=== PATIENT | male | born 1960 | race Caucasian/White ===

== ENCOUNTER 2017-07-11 10:39 | Emergency (ER) | payer OTHER ==
[~2017-07-11] VITALS: Ht 165.1 cm; Wt 111.1 kg
[~2017-07-11 10:39] MED LIST: ATORVASTATIN CA20 MG PO; COLCRYS0.6 MG PO; FUROSEMIDE80 MG PO; GABAPENTIN300 MG PO; HUMALIN; HYDROCHLOROTH12.5 M1 PO; LEVOTHYROXINE50 MCG PO; NAPROXEN500 MG PO; POTASSIUM CHLO10 ME1 PO; TRAMADOL-ACETAMI1 EA PO; ZESTRIL20 MG PO
[2017-07-11 11:15] VITALS: BP 120/60
== END 2017-07-11 11:17 | disposition home or self-care (01) ==
LOC: FSED 10:39
DX: M79.632 Pain in left forearm (principal); M70.22 Olecranon bursitis, left elbow; M1A.9XX0 Chronic gout, unspecified, without tophus (tophi)
CPT/HCPCS: 99282

== ENCOUNTER 2017-08-07 08:13 | Inpatient (IN) | payer OTHER ==
[~2017-08-07] VITALS: Ht 163.8 cm; Wt 108.6 kg
--- OUTSIDE RECORDS SUMMARY | 2017-08-07 08:15 | XMS REPORT | Continuity of Care Document ---
Author Author [facility] Organization [facility] Address [address] [place] [address] Phone Unavailable Care Team Providers Care Tail Sawyer Name Role Phone NONSTAFF PCP Unavailable Insurance Providers Guarantor Cory Tran Address [address] [address] Email @NoWait Payer [facility] Policy Number [id number] Subscriber's Name Cory Tran Relationship 18 Self / Same As Patient Group Number [id number] Group Name [employer] Effective Date 13 Advance Directives Directive Response Recorded Date/Time Does the patient have an advance directive? No 01/24/12 12:48am If yes, is advance directive on file with [facility]? No 01/24/12 12:49am If not on file with [facility] will patient provide a copy? No 01/24/12 12:49am Problems No problem information available. Medications Current Home Medications Medication Dose Units Route Directions Days Qty Instructions Start Date Atorvastatin Calcium 20 Mg Tablet 20 Mg Oral Daily Colchicine (Colcrys) 0.6 Mg Tablet 0.6 Mg Oral Daily 30 Tab Furosemide 80 Mg Tablet 80 Mg Oral Twice A Day Gabapentin 300 Mg Capsule 300 Mg Oral Three Times A Day 60 Cap Gabapentin 300 Mg Capsule 300 Mg Oral Three Times A Day 60 Cap Humalin Hydrochlorothiazide 12.5 Mg Capsule 12.5 Mg Oral Daily Levothyroxine Sodium 50 Mcg Tablet 50 Mcg Oral Daily 30 Tab Lisinopril (Zestril*) 20 Mg Tablet 20 Mg Oral Daily Naproxen 500 Mg Tablet 500 Mg Oral Daily Potassium Chloride 10 Meq Tab.er.prt 10 Meq Oral Daily Tramadol/Acetaminophen (Tramadol-Acetaminophn 37.5-325) 1 Ea Tab 1 Tab Oral Every 8 Hours Social History Smoking Status Start Date Stop Date Never Smoker Hospital Discharge Instructions No hospital discharge instruction information available. Plan of Care Discharge Date 07/11/17 11:17am Disposition HOME, SELF-CARE Condition at Discharge Stable Instructions/Education Provided Bursitis - Elbow Forms Provided Work/School Excuse Prescriptions See Medication Section Additional Instructions/Education Apply ice to the area for 15 - 20 minutes every 2 hours, while awake, to help with pain. Indomethacin 50 mg - 1 tab three times/day, with food, for pain in elbow. You may NOT take Ibuprofen, Advil, Aleve, or any other similar medications while taking this medication. Make sure that you are drinking PLENTY OF WATER, while taking this medication, with a goal to drink 2L of water/day. Tramadol 50 mg - 1-2 tabs every 4-6 hours, for pain unrelieved by the Indomethacin. Folllow-up with your PCP, Dr. Carbone, this week if the pain is persistent, for further evaluation and treatment. Functional Status No functional status information available. Allergies, Adverse Reactions, Alerts No known allergies. Immunizations No immunization information available. Vital Signs Acute Vital Signs Vital Response Date/Time Temperature (Fahrenheit) 98.0 degrees F (97.6 - 99.5) 07/11/2017 11:15am Pulse Pulse Rate (adult) 96 bpm (60 - 90) 07/11/2017 11:15am Respiratory Rate 18 bpm (12 - 24) 07/11/2017 11:15am Blood Pressure 120/60 mm Hg 07/11/2017 11:15am Height 5 ft 5 in 07/11/2017 10:46am Weight 245 lb 07/11/2017 10:46am Body Mass Index 40.8 kg/m^2 07/11/2017 10:46am Results No relevant diagnostic test, laboratory data and/or discharge summary information available. Procedures No procedure information available. Encounters Encounter Location Arrival/Admit Date Discharge/Depart Date Attending Provider Departed Emergency Room [facility] 07/11/17 10:39am 07/11 11:17am KIANNA MERA MD
[2017-08-07] MEDS ORDERED: SODIUM CHLORIDE 0.9% 1000ML 1,000 ML IV STA (09:39)
[2017-08-07] MEDS ORDERED: INSULIN REGULAR, HUMAN 100 UNIT/1 ML 3ML VIAL SQ ONE (09:45)
[2017-08-07] MEDS ORDERED: SODIUM CHLORIDE FLUSH 10 ML SYR INJ PRN (10:15)
[2017-08-07] MEDS: SODIUM CHLORIDE 0.9% 1000ML 1,000 ML IV SCH ×3 (10:45→20:42)
[2017-08-07 12:05] VITALS: BP 123/58
[2017-08-07 12:17] VITALS: BP 123/58
[2017-08-07 12:59] VITALS: BP 118/57
[2017-08-07 13:00] VITALS: BP_SYST 138; BP_SYST 147; BP_DIAS 61; BP_DIAS 67
[2017-08-07 15:13] VITALS: BP 116/56
[2017-08-07] MEDS: GABAPENTIN 300 MG CAP PO SCH ×2 (15:41→20:42)
--- NOTE | 2017-08-07 15:47 | History and Physical ---
PRIMARY CARE DOCTOR: Dr. Keller with [facility]. HOSPITAL COVERING PHYSICIAN: Dr. Velasquez. HISTORY: Mr. Tran is a pleasant 56-year-old gentleman with worsened and excruciating neurologic symptoms. Patient is known to have back pain for years. Lumbar spine was involved previously. He has had CAT scan done in 2014 in our system. That CAT scan showed advanced degenerative facet arthropathy and synovitis at L4 to L5 mainly. There is moderate severe degenerative spinal canal and bilateral foraminal stenosis at L4-L5. There is bilateral sacral iliac joint degenerative changes. Patient was in usual state of health. He was always treated conservatively under management. However for the last day it is the worst pain ever. He has pain in the lower back radiating down the left leg. He has never had it this severe before. He denies weakness. He denies chronic stumbling or falls. Denies bladder or bowel problems. Additionally the patient is having dizziness. He never had dizziness like this before. It is vertigo and it was worse yesterday although slightly better today. The back pain is slightly worse on stooping forward and on lying on his back flat is also worse. PAST MEDICAL HISTORY: Hypertension, diabetes, renal disease chronic, arthritis, congestive heart failure, hyperlipidemia, hypothyroidism, gout, seasonal allergies. MEDICATIONS: Medication list reviewed per in the chart record. Mainly some blood pressure medicine. ALLERGIES: NO KNOWN DRUG ALLERGIES. SOCIAL HISTORY: No drinking, no drugs. He smoked from the age 13 to 26, one pack per day. 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 He worked for a [employer] company. REVIEW OF SYSTEMS: GENERAL: No weight changes. OPHTHALMOLOGIC: No double vision. ENT: No dry mouth. PULMONARY: No asthma. CARDIAC: No recent heart attack. GI: No constipation. : No blood in urine. MUSCULOSKELETAL: There is some arthritis. DERMATOLOGIC: No rashes. OBJECTIVE: VITAL SIGNS: Afebrile, vital signs noted per electronic chart. GENERAL: No acute distress, alert and calm. HEENT: Normocephalic, atraumatic. NECK: Supple. Throat midline. LUNGS: Bilateral air entry, clear. CARDIOVASCULAR: S1, S2. No murmurs, rubs, or gallops. ABDOMEN: Soft, obese. Nontender. EXTREMITIES: No clubbing, no cyanosis, no edema. INTEGUMENT: No rash, no purpura. LABS: White count 10, 42 hematocrit, 208 platelets. Potassium 4.7, 40 BUN, 1.8 creatinine. Urinalysis unremarkable. Albumin is 4.1. D-dimer is 622. BNP 36, troponin normal. Chest x-ray normal. IMPRESSION/PLAN: 1. Severe worst ever back pain. 2. New onset vertigo. 3. History of pre-existing moderate to severe spinal stenosis. 4. Advanced degenerative facet arthropathy and synovitis at L4 to L5 mainly. 5. Degenerative joint disease. 6. Hypertension, diabetes, heart disease, chronic kidney disease, arthritis, hyperlipidemia, hypothyroidism, gout. At this time we will continue current treatment. Check MRI of brain. Check MRI of lumbar spine. Once these are back, if there are no remarkable findings, we will consider ambulating him and think he would be good to be discharged. However if findings pertinent will address it as needed. Resume blood pressure medicines. Renal cautions with CKD. Thank you very much Dr. Keller for allowing me the chance to participate in the care of Mr. Tran. Do not hesitate to contact me if I can help in any way. This history and physical was in coverage for Jaylen Velasquez MD Job#: [id number] ROCÍO
[2017-08-07] MEDS ORDERED: NON-FORMULARY MEDICATION (Furosemide 80 MG) PO SCH (17:00)
[2017-08-07] MEDS ORDERED: DEXTROSE 50% SYRINGE 50 ML IV PRN (17:30)
[2017-08-07] MEDS: FUROSEMIDE 40 MG TAB PO SCH (17:42)
[2017-08-07] MEDS: INSULIN REGULAR, HUMAN 100 UNIT/1 ML 3ML VIAL SQ SCH ×2 (17:42→21:05)
[2017-08-07 20:00] VITALS: BP 128/58
--- NOTE | 2017-08-07 20:34 | Diagnostic Imaging Report ---
EXAMINATION: Head CT without contrast HISTORY: Vertigo, acute renal failure COMPARISON: None. TECHNIQUE: Multidetector axial images were obtained without contrast from the foramen magnum to the vertex . The images were reconstructed using brain and bone algorithms. Thin section brain images were reformatted into coronal and sagittal planes. Image quality: Motion/streaking artifact limits the evaluation of the skull base and posterior cranial fossa. FINDINGS: Parenchyma: 1. No abnormal densities. 2. No mass or hemorrhage. No CT evidence of acute territorial vascular insult. Extra-axial spaces:No abnormal density. No extra-axial fluid collections Brain volume: Normal for age. Ventricles: No hydrocephalus or displacement. Arteries: No density suggestive of thrombus. Dural sinuses: No abnormal density. Extra-axial spaces: No abnormal density. Foramen magnum: No mass, Chiari malformation, or basilar invagination. Sella: No obvious mass. Paranasal/mastoid sinuses: Imaged portions unremarkable. Skull/Scalp: No lytic or blastic lesions. No fractures. IMPRESSION: Normal head CT. Signed by: Dr. Negin Wesley M.D. on 08/07/2017 8:31 PM
--- NOTE | 2017-08-07 20:50 | Diagnostic Imaging Report ---
EXAMINATION: CT of the lumbar spine HISTORY: Back pain, vertigo, acute renal failure COMPARISON: None available TECHNIQUE: Multidetector helical axial images were obtained without contrast from L1 to S1. The images were reconstructed using bone and soft tissue algorithms and were viewed in axial, sagittal, and coronal planes. FINDINGS: Alignment:Normal alignment and lordosis. Vertebral bodies:Normal height and density. Minimal chronic deep depression of the endplates of T12, L1 and L2, likely shallow Schmorl nodes. Paraspinal muscles:Normal. Intervertebral disks: L1-L2: Normal. L2-L3: Minimal symmetric bulge without canal or foraminal stenoses. L3-L4: Mild symmetric disc and facet arthropathy. Minimal canal and foraminal narrowing. L4-L5: - Advanced facet arthroses mainly on the right with subchondral lucency/cyst, widening of the articular space and marginal osteophytes), small well-corticated bone fragment adjacent to the inferior margin of the right facet may represent a small chronic fracture. -Symmetric disc bulge, ligamenta flava thickening. -Severe spinal canal and bilateral foraminal stenoses. -Nonspecific effacement of the dorsal epidural fat, which may be related to ligamenta flava thickening versus nonspecific soft tissue lesion. Particularly given the mild erosive changes of the right lamina, which may represent underlying posttraumatic injury, inflammatory, infectious or neoplastic process versus extension of degenerative changes from the right facet. L5-S1: Mild facet arthrosis without canal or foraminal stenosis.. Sacroiliac joints: Prominent degenerative changes bilaterally with bridging osteophytes. IMPRESSION: 1. Minimal degenerative anterolisthesis at L4-5. 2. Severe degenerative spinal canal and bilateral foraminal stenosis at L4-L5. 3. Effacement of the dorsal epidural fat at L4-L5 an underlying osseous changes may be related to degenerative changes, other considerations would include posttraumatic, inflammatory or neoplastic process in the appropriate clinical setting; a nonemergent lumbar spine MRI without and with contrast is recommended for evaluation. Signed by: Dr. Negin Wesley M.D. on 08/07/2017 8:46 PM
[2017-08-08] VITALS: BP 111/54
[2017-08-08 02:24] VITALS: BP 111/54
[2017-08-08 04:00] VITALS: BP 100/54
[2017-08-08] MEDS: LEVOTHYROXINE SODIUM 50 MCG TAB PO SCH (05:17)
[2017-08-08] MEDS: SODIUM CHLORIDE 0.9% 1000ML 1,000 ML IV SCH ×5 (05:17→21:11)
[2017-08-08 06:52] LABS: ANION GAP 10.7 mmol/L (8-16); CALCIUM 8.9 mg/dL (8.4-10.2); CREATININE, SERUM 1.45 mg/dL (0.72-1.25); MAGNESIUM 1.5 MG/DL (1.3-2.1); POTASSIUM 3.7 mmol/L (3.5-5.1)
[2017-08-08 08:00] VITALS: BP 128/60
[2017-08-08] MEDS ORDERED: LEVOTHYROXINE SODIUM 50 MCG TAB PO SCH (09:00)
[2017-08-08] MEDS ORDERED: LISINOPRIL 20 MG TAB PO SCH (09:00)
[2017-08-08] MEDS: LISINOPRIL 20 MG TAB PO SCH (09:31)
[2017-08-08] MEDS: POTASSIUM CHLORIDE 10 MEQ TABCR PO SCH (09:31)
[2017-08-08] MEDS: FUROSEMIDE 40 MG TAB PO SCH ×2 (09:31→16:43)
[2017-08-08] MEDS: GABAPENTIN 300 MG CAP PO SCH ×3 (09:31→20:01)
--- NOTE | 2017-08-08 10:12 | Consultation ---
DATE OF CONSULTATION: August 08, 2017, at 8:30 in the morning. NEUROLOGICAL CONSULTATION This is a patient of Dr. Romo. REASON FOR CONSULTATION: Back pain. This is a 56-year-old male who stated in the last couple of days he has been complaining of severe back pain, all the lower back down to the left leg and down to the knee in the anterolateral aspect. The pain is severe. It is aggravated by movements. Best position is lying down on the left side. He denies any claudication. No pain after walking. He denies any weakness. He complains of some numbness and tingling in both feet. He denies any problem in the upper extremities. He denies any back injury. The patient has chronic lower back pain. He has been having lower back pain since 2013, when he underwent CAT scan of the lumbar at [facility]. They found significant degenerative changes in the lumbar spine with narrowing of spinal canal at L4-L5. The patient has been treated conservatively. The day that he woke up with the pain, he went to the bathroom. He felt dizzy, like lightheaded. He never had that problem before. At the present time, he is feeling better. PAST HISTORY: He has a history of hypertension, diabetes mellitus type 2, kidney insufficiency, arthritis, gout, hyperlipidemia, hypothyroidism. SOCIAL HISTORY: He does not drink. He does not smoke at the present time. He is working for a [employer]. ALLERGIES: NONE KNOWN. MEDICATIONS: List of medications has been reviewed in detail. FAMILY HISTORY: Noncontributory. REVIEW OF SYSTEMS: All 12 steps are negative except for what is described above. PHYSICAL EXAMINATION GENERAL: Weight is 230 pounds. He seems to be in no acute distress. VITALS: Blood pressure 100/54, pulse 95, temperature 98.2. LUNGS: Clear to auscultation. HEART: Regular sinus rhythm. No murmur. ABDOMEN: Moderately obese. No tenderness. LOWER EXTREMITIES: No edema. No cyanosis. No clubbing. NEUROLOGIC EXAMINATION MENTAL STATUS: He is alert and oriented times 3. Speech is clear. No dysarthria or dysphagia. CRANIAL NERVES: Pupils are both equal and reactive. The extraocular movements are full. Visual nelson on confrontation were grossly normal. No facial weakness. Tongue protrudes in the midline. MOTOR POWER: Upper extremities: No evidence of muscle wasting. Motor strength: Abduction of the arms 5/5. Flexion and extension of both arms 5/5. Dorsiflexion of the wrists 5/5. Hand er rn 5/5. Lower extremities: Straight-leg raise about 60 degrees bilaterally and positive with pain in the lower back. Flexion of the hips 5/5. Flexion and extension of both knees 5/5. Dorsiflexion of both ankles 5/5. Plantarflexion 5/5 bilaterally. Toe extension 5/5 bilaterally. DEEP TENDON REFLEXES: Triceps, biceps and radials are 1+. Knee jerks and ankle jerks are absent bilaterally. Plantar stimulation is down bilaterally. SENSORY EXAMINATION: Touch is normal to pinprick. There is mild hyperesthesia in a stocking distribution up to the ankles. Vibration sense is normal. HIP MOTION: Painful internal and external rotation. GAIT: Deferred. HEAD: Normocephalic. NECK: Supple. Carotid pulsations are present bilaterally. There are no bruits. LABORATORY WORKUP: Sodium 132, low. Potassium 3.7. BUN 32 and creatinine 1.45, elevated. Estimated GFR is low at 50. Blood sugar ranging from 252 to 366 to 258. Calcium is normal. Magnesium is normal. IMAGING: CAT scan of the brain shows no acute pathology. Currently small vessel disease. Lumbar spine shows degenerative changes of the lumbar spine from L1 to L4 and L5. There is advanced facet arthrosis at L4-L5. Severe spinal stenosis at L4-L5 with bilateral foraminal stenosis. L5-S1 has some mild facet arthrosis without foraminal stenosis. The sacroiliac joints (SI) have prominent degenerative changes bilaterally. IMPRESSION 1. Severe low back pain. 2. Severe spinal stenosis, L4-L5. 3. Multiple facet arthrosis bilaterally with foraminal stenosis bilaterally. 4. Hypertension. 5. Diabetes mellitus, type 2. 6. Kidney insufficiency. 7. One episode of dizziness. COMMENT: Even if the patient is feeling better now, since the spinal stenosis is severe, it should be evaluated by neurosurgeon. He was explained about what spinal stenosis means, and he said he accepts that. We will put a consult to neurosurgery. Job#: [id number]
[2017-08-08] MEDS: INSULIN REGULAR, HUMAN 100 UNIT/1 ML 3ML VIAL SQ SCH ×3 (12:59→21:08)
[2017-08-08 15:30] VITALS: BP 128/60
--- NOTE | 2017-08-08 15:30 | Progress Note ---
DATE: August 08, 2017 INTERNAL MEDICINE PROGRESS NOTE SUBJECTIVE: Mr. Tran was seen and examined at bedside. The patient continues to have some back pain, although it is a little bit less than yesterday. The patient did end up going for a CT of the brain, which was mostly unremarkable per report. The patient's vertigo resolved. However, the patient on lumbar spine CT demonstrated severe spinal canal and bilateral foraminal stenosis at L4-L5. There is effacement of dorsal epidural fat as well, which is nonspecific. REVIEW OF SYSTEMS: No constipation. No nausea. OBJECTIVE VITAL SIGNS: Afebrile, vital signs noted per electronic chart. GENERAL: No acute distress, alert and calm. HEENT: Normocephalic, atraumatic. NECK: Supple. Throat midline. LUNGS: Bilateral air entry, a few rare rhonchi but mostly clear. CARDIOVASCULAR: S1, S2. No murmurs, rubs, or gallops. ABDOMEN: Soft, nontender. EXTREMITIES: No clubbing, no cyanosis. There is no edema. INTEGUMENT: No rash, no purpura. LABS: 3.7 potassium, 32 BUN, 1.5 creatinine. IMPRESSION AND PLAN 1. Severe spinal canal stenosis, L4-L5 per CT. 2. Chronic kidney disease. 3. Hypertension. 4. Diabetes. 5. Reported heart failure in past. Appreciate neurology evaluation. Will get neurosurgery consult. Patient previously reported inability to do an MRI due to claustrophobia, and this may need to be re-evaluated if further imaging is needed. Repeat blood work in a couple of days to ensure creatinine is stable. Job#: [id number]
[2017-08-08 16:00] VITALS: BP 106/51
[2017-08-08] MEDS: INSULIN LISPRO 100 UNIT/1 ML 3ML VIAL SQ SCH (16:43)
[2017-08-08] MEDS: ALLOPURINOL 100 MG TAB PO SCH (20:01)
[2017-08-08] MEDS: COLCHICINE 0.6 MG TAB PO PRN (20:01)
[2017-08-09] VITALS (7 sets, daily range): BP systolic 107–138; BP diastolic 52–87
[2017-08-09] MEDS: LEVOTHYROXINE SODIUM 50 MCG TAB PO SCH (05:07)
[2017-08-09] MEDS: COLCHICINE 0.6 MG TAB PO PRN ×2 (05:08→19:49)
--- NOTE | 2017-08-09 06:46 | Diagnostic Imaging Report ---
EXAMINATION: CHEST SINGLE (PORTABLE) INDICATION: Acute renal failure versus CHF. COMPARISON: None FINDINGS: TUBES and LINES: None. LUNGS: Low lung volumes. Lungs are clear. There is no evidence of pneumonia or pulmonary edema. PLEURA: No pleural effusion or pneumothorax. HEART AND MEDIASTINUM: The cardiomediastinal silhouette is unremarkable. BONES AND SOFT TISSUES: No acute osseous lesion. Soft tissues are unremarkable. UPPER ABDOMEN: No free air under the diaphragm. IMPRESSION: No acute thoracic abnormality. Signed by: Dr. Maximiliano Aguirre M.D. on 08/09/2017 6:42 AM
[2017-08-09] MEDS: INSULIN REGULAR, HUMAN 100 UNIT/1 ML 3ML VIAL SQ SCH ×4 (07:30→21:18)
[2017-08-09 08:33] LABS: ANION GAP 12.8 mmol/L (8-16); CALCIUM 9.1 mg/dL (8.4-10.2); CREATININE, SERUM 1.37 mg/dL (0.72-1.25); MAGNESIUM 1.4 MG/DL (1.3-2.1); POTASSIUM 3.8 mmol/L (3.5-5.1)
[2017-08-09] MEDS: FUROSEMIDE 40 MG TAB PO SCH ×2 (08:38→16:38)
[2017-08-09] MEDS: LISINOPRIL 20 MG TAB PO SCH (08:38)
[2017-08-09] MEDS: GABAPENTIN 300 MG CAP PO SCH ×3 (08:38→21:18)
[2017-08-09] MEDS: SODIUM CHLORIDE 0.9% 1000ML 1,000 ML IV SCH ×2 (08:38→15:26)
[2017-08-09] MEDS: POTASSIUM CHLORIDE 10 MEQ TABCR PO SCH (08:38)
[2017-08-09] MEDS: ALLOPURINOL 100 MG TAB PO SCH (08:38)
[2017-08-09] MEDS: INSULIN LISPRO 100 UNIT/1 ML 3ML VIAL SQ SCH ×3 (08:39→16:38)
[2017-08-09] MEDS: TRAMADOL HCL 50 MG TAB PO PRN (18:18)
--- NOTE | 2017-08-09 19:50 | Progress Note ---
DATE: August 09, 2017 INTERNAL MEDICINE PROGRESS NOTE SUBJECTIVE: Mr. Tran was seen and examined at bedside. He continues to have a lot of pain to his back. He was transferred from observation to inpatient and he had a stooping gait when he is walking. Patient claims that pain is much better when he is at rest, however. Chest x-ray done, which is unremarkable. No headaches right now. REVIEW OF SYSTEMS: No bleeding. No headaches. No rash. OBJECTIVE VITAL SIGNS: Noted per electronic record. GENERAL: No acute distress, alert and calm. HEENT: Normocephalic, atraumatic. NECK: Supple. Throat midline. LUNGS: Bilateral air entry, a few rare rhonchi, a rare pause noted. CARDIOVASCULAR: S1, S2. No murmurs, rubs or gallops. ABDOMEN: Soft, nontender. EXTREMITIES: No clubbing, no cyanosis. There is no edema. INTEGUMENT: No rash, no purpura. LABS: BUN 28, creatinine 1.4, potassium 3.8. IMPRESSION AND PLAN 1. Clinical severe spinal stenosis, lumbar based on computed tomography. 2. Headaches, resolved. 3. Chronic kidney disease. 4. Diabetes, uncontrolled. At this time, we will up-titrate the insulin again, as he is eating well and his sugars remain high. Will add Tramadol for possible gout or other knee pains that he has. Follow up with surgeon. MRI versus myelogram as per the patient's ability to perform to rule out myelopathy in spinal cord. Will follow up closely and neurosurgery input in expected. Job#: [id number]
[2017-08-09] MEDS: ACETAMINOPHEN/CODEINE 300MG - 30MG TAB PO PRN (23:21)
[2017-08-10] MEDS: SODIUM CHLORIDE 0.9% 1000ML 1,000 ML IV SCH ×4 (00:59→18:06)
[2017-08-10 01:25] VITALS: BP 111/56
[2017-08-10 05:35] VITALS: BP 102/54
[2017-08-10] MEDS: LEVOTHYROXINE SODIUM 50 MCG TAB PO SCH (06:28)
[2017-08-10 07:02] LABS: BASOPHILS % 0.3 % (0.0-1.0); EOSINOPHILS # (AUTO) 0.2 (0.0-0.4); EOSINOPHILS % 1.9 % (0.0-6.0); HEMATOCRIT 36.5 % (38.2-49.6); HEMOGLOBIN 12.5 g/dL (14.0-18.0); LYMPHOCYTES % 22.3 % (18.0-39.1); MEAN CORPUSCULAR HEMOGLOBIN 29.2 pg (28-32); MEAN CORPUSCULAR HGB CONC 34.2 g/dL (31-35); MEAN CORPUSCULAR VOLUME 85.3 fL (81-99); MONOCYTES % 11.5 % (4.4-11.3); NEUTROPHILS # (AUTO) 5.6 (2.1-6.9); NEUTROPHILS % 63.4 % (38.7-80.0); PLATELET COUNT 198 x10e3/uL (140-360); RED BLOOD COUNT 4.28 x10e6/uL (4.3-5.7); RED CELL DISTRIBUTION WIDTH 12.3 % (11.7-14.4)
[2017-08-10 07:22] LABS: ALBUMIN/GLOBULIN RATIO 0.9 (0.8-2.0); ANION GAP 11.9 mmol/L (8-16); CALCIUM 8.9 mg/dL (8.4-10.2); CREATININE, SERUM 1.29 mg/dL (0.72-1.25); POTASSIUM 3.9 mmol/L (3.5-5.1)
[2017-08-10] MEDS: INSULIN REGULAR, HUMAN 100 UNIT/1 ML 3ML VIAL SQ SCH ×4 (07:30→21:00)
[2017-08-10 07:31] VITALS: BP 144/65
[2017-08-10] MEDS: LISINOPRIL 20 MG TAB PO SCH (08:57)
[2017-08-10] MEDS: FUROSEMIDE 40 MG TAB PO SCH ×3 (08:57→18:37)
[2017-08-10] MEDS: POTASSIUM CHLORIDE 10 MEQ TABCR PO SCH (08:57)
[2017-08-10] MEDS: INSULIN LISPRO 100 UNIT/1 ML 3ML VIAL SQ SCH ×3 (08:57→17:54)
[2017-08-10] MEDS: GABAPENTIN 300 MG CAP PO SCH ×3 (08:57→22:27)
[2017-08-10] MEDS: ALLOPURINOL 100 MG TAB PO SCH (08:57)
[2017-08-10 13:52] VITALS: BP 133/62
[2017-08-10] MEDS ORDERED: LORAZEPAM INJ 2 MG/ML VIAL IV PRN (16:45)
[2017-08-10 17:45] VITALS: BP 136/65
[2017-08-10 20:00] VITALS: BP 114/50
[2017-08-10] MEDS: TRAMADOL HCL 50 MG TAB PO PRN (22:31)
--- NOTE | 2017-08-10 23:53 | Progress Note ---
DATE: August 10, 2017 INTERNAL MEDICINE PROGRESS NOTE SUBJECTIVE: Mr. Tran was seen and examined at bedside. Still with a lot of pain to his lower back. Still some pain to his left knee. However, these are better today. He says he is able to walk around a little bit now. Neurosurgery saw the patient and noted need for further workup. REVIEW OF SYSTEMS: No headaches, no constipation. OBJECTIVE: VITAL SIGNS: Afebrile, vital signs noted per electronic record. GENERAL: In no acute distress, alert and calm. HEENT: Normocephalic, atraumatic. NECK: Supple. Throat midline. LUNGS: Bilateral air entry, mostly clear. CARDIOVASCULAR: S1, S2. No murmurs, rubs, or gallops. ABDOMEN: Soft, nontender. EXTREMITIES: No clubbing, no cyanosis, there is no edema. INTEGUMENT: No rash, no purpura. LABS: Potassium 3.9, 28 BUN, 1.3 creatinine. 8.8 white count, 37 hematocrit. IMPRESSION AND PLAN: 1. Severe pain, slightly better to lower back and left leg. 2. Severe central canal stenosis. 3. Hypertension. 4. Diabetes. 5. Reported congestive heart failure. 6. Chronic kidney disease. Continue followup on current medications. Reassess renal function and avoid nephrotoxic agents. Magnetic resonance imaging of the spine today. Additional benzodiazepine will be given. Follow up blood sugars. Blood sugars often 200s range here, so we will slightly modify insulin coverage in next few days if not better. He is on his home dose of 16 units of insulin t.i.d. with meals. Job#: [id number]
[2017-08-11] VITALS (7 sets, daily range): BP systolic 104–151; BP diastolic 50–88
[2017-08-11] MEDS: ACETAMINOPHEN/CODEINE 300MG - 30MG TAB PO PRN (02:30)
[2017-08-11] MEDS: LEVOTHYROXINE SODIUM 50 MCG TAB PO SCH (06:50)
[2017-08-11] MEDS: GABAPENTIN 300 MG CAP PO SCH ×3 (09:30→21:39)
[2017-08-11] MEDS: ALLOPURINOL 100 MG TAB PO SCH (09:30)
[2017-08-11] MEDS: POTASSIUM CHLORIDE 10 MEQ TABCR PO SCH (09:30)
[2017-08-11] MEDS: FUROSEMIDE 40 MG TAB PO SCH ×2 (09:30→18:01)
[2017-08-11] MEDS: LISINOPRIL 10 MG TAB PO SCH (09:30)
[2017-08-11] MEDS: INSULIN LISPRO 100 UNIT/1 ML 3ML VIAL SQ SCH ×3 (09:30→18:01)
[2017-08-11] MEDS: INSULIN REGULAR, HUMAN 100 UNIT/1 ML 3ML VIAL SQ SCH ×4 (09:34→21:00)
--- NOTE | 2017-08-11 10:39 | Consultation ---
DATE OF CONSULTATION: August 11, 2017 REASON FOR CONSULTATION: Low back pain. HISTORY OF PRESENT ILLNESS: The patient is a 56-year-old man who has had chronic intermittent low back pain for several years. He also has gout in his left knee which has flared up recently. He has been taking pain medications on and off for his back pain but has not had any specific treatment. He was admitted 4 days ago with severe flare up of low back pain radiating down both legs such that he had a great deal of difficulty walking except when he is stooped over. He has been treated with pain medications and bed rest, and his back pain has improved since then. At this time, he remains with left knee gout pain, which causes him to limp when he walks. PHYSICAL EXAMINATION: The left knee joint is mildly tender to palpation. He can stand and walk independently, lifting on the left side because of the knee pain. Motor strength is preserved in the leg. Sensory testing reveals no dermatomal deficits. The deep tendon reflexes are 1+ and symmetric throughout. Plantar response was flexor. MRI and CT of the lumbar spine were reviewed. There is moderate spinal stenosis at L4-5 associated with mild, grade-1, degenerative spondylolisthesis. IMPRESSION: Moderate L4-L5 spinal stenosis with mild, grade-1, degenerative spondylolisthesis. At this time, he does not require surgical treatment. He can be discharged from my standpoint and follow up with the pain specialist for lumbar epidural steroid injections. He can also follow up with me at a later date if his pain recurs, at which point the option of surgery can be reconsidered. Job#: [id number]
[2017-08-11] MEDS ORDERED: METHYLPREDNISOLONE SOD SUCC 40 MG/ML VIAL IV ONE (20:30)
--- NOTE | 2017-08-11 20:47 | Progress Note ---
DATE: August 11, 2017 INTERNAL MEDICINE PROGRESS NOTE SUBJECTIVE: Mr. Tran was seen and examined at the bedside. The patient continues to have a lot of pain in his back, but less than before. The patient with examination by neurosurgeon demonstrating no acute surgical need. The patient recommended for pain management. REVIEW OF SYSTEMS: No bleeding, no diarrhea. OBJECTIVE VITAL SIGNS: Afebrile. Vital signs noted per the chart record. GENERAL: In no apparent distress, alert and calm. HEENT: Normocephalic, atraumatic. NECK: Supple. Throat midline. LUNGS: Bilateral air entry, clear. CARDIOVASCULAR: S1 and S2 and no murmurs, rubs or gallops. ABDOMEN: Soft and nontender. EXTREMITIES: No cyanosis or clubbing. There is no edema. INTEGUMENT: No rash, no purpura. IMPRESSION 1. Lower back pain, moderate, L4 to L5 spinal stenosis. 2. Mild degenerative spondylolisthesis. 3. History of gout, possible left knee gouty pain. 4. Hypertension. 5. Diabetes mellitus. 6. Reported congestive heart failure. 7. Chronic kidney disease. PLAN: Check x-rays and give a dose of steroids for possibility of gout. computer help desk specialist. Will see by physical therapy if the patient can go home tomorrow. Will follow him closely. Job#: [id number]
--- NOTE | 2017-08-11 21:35 | Diagnostic Imaging Report ---
EXAM: KNEE LEFT THREE VIEWS, AP, lateral and oblique INDICATION: Left knee pain, no injury COMPARISON: Left knee x-ray January 24, 2012 FINDINGS: BONES: No acute fractures. Patellar and anterior tibial tuberosity enthesophytes. JOINTS: No malalignment. SOFT TISSUES: Suspect a small joint effusion. IMPRESSION: Mild degenerative changes of the left knee and possible small joint effusion. No evidence of fracture. Signed by: Dr. Cassie Hanna M.D. on 08/11/2017 9:31 PM
[2017-08-12] VITALS: BP 126/58
[2017-08-12 04:46] VITALS: BP 131/59
[2017-08-12] MEDS: LEVOTHYROXINE SODIUM 50 MCG TAB PO SCH (06:19)
[2017-08-12 07:59] VITALS: BP 124/53
[2017-08-12] MEDS: GABAPENTIN 300 MG CAP PO SCH (08:34)
[2017-08-12] MEDS: ALLOPURINOL 100 MG TAB PO SCH (08:34)
[2017-08-12] MEDS: POTASSIUM CHLORIDE 10 MEQ TABCR PO SCH (08:34)
[2017-08-12] MEDS: FUROSEMIDE 40 MG TAB PO SCH (08:34)
[2017-08-12] MEDS: LISINOPRIL 10 MG TAB PO SCH (08:35)
[2017-08-12] MEDS: INSULIN REGULAR, HUMAN 100 UNIT/1 ML 3ML VIAL SQ SCH (08:35)
[2017-08-12] MEDS: INSULIN LISPRO 100 UNIT/1 ML 3ML VIAL SQ SCH (08:35)
[2017-08-12 09:46] VITALS: BP 124/53
--- NOTE | 2017-08-12 14:12 | Discharge Summary ---
PRIMARY CARE DOCTOR: Dr. Dar Carbone FINAL DIAGNOSIS: Severe spinal stenosis of L4 and L5. SECONDARY DIAGNOSES 1. Stage 3 chronic kidney disease due to diabetes. 2. Hypertension. 3. Left knee acute gouty flare. 4. Congestive heart failure per report. CONSULTANTS 1. Dr. Montoya, neurosurgery. 2. Dr. Paul, neurology. PROCEDURES/STUDIES PERFORMED 1. Lumbar spine MRI. 2. Lumbar spine computerized tomography. 3. Head computerized tomography. 4. Chest x-ray. 5. Knee x-ray. HISTORY: Per [facility] and [facility]. HOSPITAL COURSE: The patient had persistent severe back pain due to severe spinal stenosis. Subsequently, still had left knee gouty flare. The patient was evaluated by neurosurgery. No acute surgical intervention is indicated. The patient was given a dose of Solu-Medrol 40 mg. Both his left knee and his back felt better. Currently, he is able to ambulate without needing any assisted device. At baseline, the patient is ambulatory. He works. He is independent. His sugar did go up a little bit with the steroids. Will go ahead and let him go home today on a Medrol Dosepak. His creatinine is relatively stable while in the hospital ranging from 1.4 to 1.2. The patient was seen and examined today. It took 33 minutes total to discharge this patient today. CONDITION ON DISCHARGE: Stable. DISCHARGE MEDICATIONS: Please see medication reconciliation form. ADOLPH WARE M.D. Job#: [id number] RI cc:DAR CARBONE MD
--- NOTE | 2017-08-13 09:49 | Diagnostic Imaging Report ---
MRI SPINE LUMBAR WO History: 56-year-old with acute renal failure, chronic low back pain, and new onset increase in low back pain radiating to the left leg without weakness, concomitant dizziness, Comparison studies:CT lumbar spine 08/07/2017 Technique: Sagittal and axial T2 , sagittal T1 and IR, axial spin density oblique. Intravenous contrast: None Findings: Number of lumbar vertebral bodies: 5. Alignment: Normal lordosis. No scoliosis. Soft tissues: No T2 hyperintense inflammatory changes. Paraspinal muscles: Paraspinous inflammatory changes within the subcutaneous soft tissues posterior to L4 and L5 Lower thoracic cord: Normal in signal and morphology. The tip of the conus is at L1 . Cauda equina: No masses. No arachnoiditis. Vertebrae: No compression fractures, infection or neoplasm. Degenerative changes: Congenitally short pedicles L1-L2: Disc height maintained. No significant disc bulge. Thickening of the ligamentum flavum. Mild narrowing of the spinal canal. Mild narrowing of the right foramen L2-L3: T2 signal in disc height maintained. Mild thickening of the ligamentum flavum. Mild narrowing of the spinal canal. Bilateral foraminal widely patent. L3-L4: T2 signal and disc height maintained. Mild symmetric bulging disc. Spinal canal is widely patent. Mild bilateral foraminal narrowing. L4-L5: T2 signal and disc height maintained. Mild symmetric bulging disc. Thickening of the ligamentum flavum. Significant bilateral facet hypertrophy. Resulting moderate to severe canal narrowing with resulting crowding of the nerve roots and loss of CSF signal. Fluid within bilateral facet joints.Inflammatory changes adjacent to the facet joints bilaterally. Moderate to severe bilateral foraminal narrowing right greater than left. L5-S1: No abnormalities IMPRESSION: 1. Bilateral L4-L5 facet synovitis, with small cyst formation associated with left. 2. Foraminal narrowing greatest at L4-L5, right greater than left Signed by: Dr. Jesus Mcclain M.D. on 08/13/2017 9:45 AM
== END 2017-08-12 11:05 | disposition home or self-care (01) | DRG 552 ==
LOC: FSED 08:13 → IMCU 11:08 → OBSVTOIN 08-09 11:05 → MED/SURG 08-09 15:29
PROVIDERS: ADMIT Internal Medicine; ATTEND Internal Medicine
DX: M48.061 Spinal stenosis, lumbar region without neurogenic claudication (principal); N17.9 Acute kidney failure, unspecified; I13.0 Hypertensive heart and chronic kidney disease with heart failure and stage 1 through stage 4 chronic kidney disease, or unspecified chronic kidney disease; Z68.41 Body mass index [BMI] 40.0-44.9, adult; E11.22 Type 2 diabetes mellitus with diabetic chronic kidney disease; N18.3 Chronic kidney disease, stage 3 (moderate); I50.9 Heart failure, unspecified; R42 Dizziness and giddiness; E66.9 Obesity, unspecified; M10.062 Idiopathic gout, left knee; M43.16 Spondylolisthesis, lumbar region; E03.9 Hypothyroidism, unspecified; E11.65 Type 2 diabetes mellitus with hyperglycemia; Z79.4 Long term (current) use of insulin; E78.5 Hyperlipidemia, unspecified; R51 Headache
CPT/HCPCS: 36415; 70450; 71045; 72131; 72148; 80048; 80053; 80307; 81003; 82948; 83735; 84484; 85025; 85379; 93005; 97139; 99284; G0378; J2060; J2920; J7030

== ENCOUNTER 2018-07-22 17:33 | Emergency (ER) | payer OTHER ==
[~2018-07-22] VITALS: Ht 163.8 cm; Wt 109.3 kg
--- OUTSIDE RECORDS SUMMARY | 2018-07-22 17:36 | XMS REPORT ---
Author Author [facility] Address Unknown Phone Unavailable Care Team Providers Care Talend Developer Name Role Phone Albert WARE Unavailable Unavailable Problems This patient has no known problems. Allergies, Adverse Reactions, Alerts This patient has no known allergies or adverse reactions. Medications This patient has no known medications. Results Test Description Test Time Test Comments Text Results Atomic Results Result Comments KNEE LEFT THREE VIEWS [place] [address] Patient Name: CARLOS MARIA MR #: [id number] : 1960 Age/Sex: 56/M Req #: [id number] Adm Physician: ADOLPH WARE MD Ordered by: PHUC POLLARD MD Report #: [id number] Location: MED/SURG Room/Bed: [facility] Procedure: [id number] DX/KNEE LEFT THREE VIEWS Exam Date: 08/11/17 Exam Time: 2054 REPORT STATUS: Signed EXAM: KNEE LEFT THREE VIEWS, AP, lateral and oblique INDICATION: Left knee pain, no injury COMPARISON: Left knee x-ray January 24, 2012 FINDINGS: BONES: No acute fractures. Patellar and anterior tibial tuberosity enthesophytes. JOINTS: No malalignment. SOFT TISSUES: Suspect a small joint effusion. IMPRESSION: Mild degenerative changes of the left knee and possible small joint effusion. No evidence of fracture. Signed by: Dr. Juan Hanna M.D. on 08/11/2017 9:31 PM Dictated By: JUAN HANNA MD 30 Transcribed By: DEVAN on 08/11/172130 COPY TO: PHUC POLLARD MD MRI SPINE LUMBAR WO [place] [address] Patient Name: CARLOS MARIA MR #: [id number] : 1960 Age/Sex: 56/M Req #: [id number] Adm Physician: ADOLPH WARE MD Ordered by: LAZARO VALDIVIA MD Report #: [id number] Location: MED/SURG Room/Bed: [facility] Procedure: [id number] MRI/MRI SPINE LUMBAR WO Exam Date: Exam Time: REPORT STATUS: Signed MRI SPINE LUMBAR WO History: 56-year-old with acute renal failure, chronic low back pain, and new onset increase in low back pain radiating to the left leg without weakness, concomitant dizziness, Comparison studies:CT lumbar spine 08/07/2017 Technique: Sagittal and axial T2 , sagittal T1 and IR, axial spin density oblique. Intravenous contrast: None Findings: Number of lumbar vertebral bodies: 5. Alignment: Normal lordosis. No scoliosis. Soft tissues: No T2 hyperintense inflammatory changes. Paraspinal muscles: Paraspinous inflammatory changes within the subcutaneous soft tissues posterior to L4 and L5 Lower thoracic cord: Normal in signal and morphology. The tip of the conus is at L1 . Cauda equina: No masses. No arachnoiditis. Vertebrae: No compression fractures, infection or neoplasm. Degenerative changes: Congenitally short pedicles L1-L2: Disc height maintained. No significant disc bulge. Thickening of the ligamentum flavum. Mild narrowing of the spinal canal. Mild narrowing of the right foramen L2-L3: T2 signal in disc height maintained. Mild thickening of the ligamentum flavum. Mild narrowing of the spinal canal. Bilateral foraminal widely patent. L3-L4: T2 signal and disc height maintained. Mild symmetric bulging disc. Spinal canal is widely patent. Mild bilateral foraminal narrowing. L4-L5: T2 signal and disc height maintained. Mild symmetric bulging disc. Thickening of the ligamentum flavum. Significant bilateral facet hypertrophy. Resulting moderate to severe canal narrowing with resulting crowding of the nerve roots and loss of CSF signal. Fluid within bilateral facet joints.Inflammatory changes adjacent to the facet joints bilaterally. Moderate to severe bilateral foraminal narrowing right greater than left. L5-S1: No abnormalities IMPRESSION: 1. Bilateral L4-L5 facet synovitis, with small cyst formation associated with left. 2. Foraminal narrowing greatest at L4-L5, right greater than left Signed by: Dr. Jesus Crespo M.D. on 08/13/2017 9:45 AM Dictated By: JESUS CRESPO MD Transcribed By: DEVAN on 08/13/1745 COPY TO: LAZARO VALDIVIA MD CHEST SINGLE (PORTABLE) [place] [address] Patient Name: CARLOS MARIA MR #: [id number] : 1960 Age/Sex: 56/M Req #: [id number] Adm Physician: ADOLPH WARE MD Ordered by: PHUC POLLARD MD Report #: [id number] Location: [facility] Room/Bed: [place] [address] Procedure: [id number] DX/CHEST SINGLE (PORTABLE) Exam Date: 08/09/17 Exam Time: 06 REPORT STATUS: Signed EXAMINATION: CHEST SINGLE (PORTABLE) INDICATION: Acute renal failure versus CHF. COMPARISON: None FINDINGS: TUBES and LINES: None. LUNGS: Low lung volumes. Lungs are clear. There is no evidence of pneumonia or pulmonary edema. PLEURA: No pleural effusion or pneumothorax. HEART AND MEDIASTINUM: The cardiomediastinal silhouette is unremarkable. BONES AND SOFT TISSUES: No acute osseous lesion. Soft tissues are unremarkable. UPPER ABDOMEN: No free air under the diaphragm. IMPRESSION: No acute thoracic abnormality. Signed by: Dr. Maximiliano Aguirre M.D. on 08/09/2017 6:42 AM Dictated By: MAXIMILIANO BIRCH MD 1 Transcribed By: DEVAN on 08/09/17641 COPY TO: PHUC POLLARD MD CT BRAIN WO [place] [address] Patient Name: CARLOS MARIA MR #: [id number] : 1960 Age/Sex: 56/M Req #: [id number] [facility] Physician: ADOLPH WARE MD Ordered by: PHUC POLLARD MD Report #: [id number] Location: [facility] Room/Bed: [place] [address] Procedure: [id number] CT/CT BRAIN WO Exam Date: 08/07/17 Exam Time: 2017 REPORT STATUS: Signed EXAMINATION: Head CT without contrast HISTORY: Vertigo, acute renal failure COMPARISON: None. TECHNIQUE: Multidetector axial images were obtained without contrast from the foramen magnum to the vertex . The images were reconstructed using brain and bone algorithms. Thin section brain images were reformatted into coronal and sagittal planes. Image quality: Motion/streaking artifact limits the evaluation of the skull base and posterior cranial fossa. FINDINGS: Parenchyma: 1. No abnormal densities. 2. No mass or hemorrhage. No CT evidence of acute territorial vascular insult. Extra-axial spaces:No abnormal density. No extra-axial fluid collections Brain volume: Normal for age. Ventricles: No hydrocephalus or displacement. Arteries: No density suggestive of thrombus. Dural sinuses: No abnormal density. Extra-axial spaces: No abnormal density. Foramen magnum: No mass, Chiari malformation, or basilar invagination. Sella: No obvious mass. Paranasal/mastoid sinuses: Imaged portions unremarkable. Skull/Scalp: No lytic or blastic lesions. No fractures. IMPRESSION: Normal head CT. Signed by: Dr. Negin Wesley M.D. on 08/07/2017 8:31 PM Dictated By: NEGIN WESLEY MD 30 Transcribed By: DEVAN on 08/07/172030 COPY TO: PHUC POLLARD MD CT LUMBAR SPINE WO [place] [address] Patient Name: CARLOS MARIA MR #: [id number] : 1960 Age/Sex: 56/M Req #: [id number] Adm Physician: ADOLPH WARE MD Ordered by: PHUC POLLARD MD Report #: [id number] Location: [facility] Room/Bed: [place] [address] Procedure: [id number] CT/CT LUMBAR SPINE WO Exam Date: 08/07/17 Exam Time: 2017 REPORT STATUS: Signed EXAMINATION: CT of the lumbar spine HISTORY: Back pain, vertigo, acute renal failure COMPARISON: None available TECHNIQUE: Multidetector helical axial images were obtained without contrast from L1 to S1. The images were reconstructed using bone and soft tissue algorithms and were viewed in axial, sagittal, and coronal planes. FINDINGS: Alignment:Normal alignment and lordosis. Vertebral bodies:Normal height and density. Minimal chronic deep depression of the endplates of T12, L1 and L2, likely shallow Schmorl nodes. Paraspinal muscles:Normal. Intervertebral disks: L1-L2: Normal. L2-L3: Minimal symmetric bulge without canal or foraminal stenoses. L3-L4: Mild symmetric disc and facet arthropathy. Minimal canal and foraminal narrowing. L4-L5: - Advanced facet arthroses mainly on the right with subchondral lucency/cyst, widening of the articular space and marginal osteophytes), small well-corticated bone fragment adjacent to the inferior margin of the right facet may represent a small chronic fracture. - Symmetric disc bulge, ligamenta flava thickening. -Severe spinal canal and bilateral foraminal stenoses. -Nonspecific effacement of the dorsal epidural fat, which may be related to ligamenta flava thickening versus nonspecific soft tissue lesion. Particularly given the mild erosive changes of the right lamina, which may represent underlying posttraumatic injury, inflammatory, infectious or neoplastic process versus extension of degenerative changes from the right facet. L5-S1: Mild facet arthrosis without canal or foraminal stenosis.. Sacroiliac joints: Prominent degenerative changes bilaterally with bridging osteophytes. IMPRESSION: 1. Minimal degenerative anterolisthesis at L4-5. 2. Severe degenerative spinal canal and bilateral foraminal stenosis at L4-L5. 3. Effacement of the dorsal epidural fat at L4-L5 an underlying osseous changes may be related to degenerative changes, other considerations would include posttraumatic, inflammatory or neoplastic process in the appropriate clinical setting; a nonemergent lumbar spine MRI without and with contrast is recommended for evaluation. Signed by: Dr. Negin Wesley M.D. on 08/07/2017 8:46 PM Dictated By: NEGIN WESLEY MD 45 Transcribed By: DEVAN on 08/07/172045 COPY TO: PHUC POLLARD MD
[2018-07-22] MEDS ORDERED: KETOROLAC TROMETHAMINE 60 MG/2 ML VIAL IM ONE (18:15)
== END 2018-07-22 18:50 | disposition home or self-care (01) ==
LOC: FSED 17:33
DX: M25.551 Pain in right hip (principal); M25.561 Pain in right knee; M25.571 Pain in right ankle and joints of right foot; M10.09 Idiopathic gout, multiple sites; I10 Essential (primary) hypertension; E11.9 Type 2 diabetes mellitus without complications; E78.5 Hyperlipidemia, unspecified; I50.9 Heart failure, unspecified
CPT/HCPCS: 99282; J1885

== ENCOUNTER → 2019-09-12 | Day surgery (SDC) | payer OTHER ==
[2019-09-08 15:18] LABS: ANION GAP 14.8 mmol/L (8-16); CALCIUM 9.3 mg/dL (8.4-10.2); CREATININE, SERUM 2.34 mg/dL (0.72-1.25); POTASSIUM 4.8 mmol/L (3.5-5.1)
[~2019-09-12] MED LIST changes: +ACETAMINOPHEN 1000 MG/100 ML IV ONE; +ALLOPURINOL300 MG PO; +CEFAZOLIN SOD 1 GM/NS 50ML 50 ML IV ONE; +DEXAMETHASONE SOD PHOS INJ 4 MG/ML VIAL ONE; +FENTANYL CITRATE/PF 100MCG/2 ML INJ ONE; +HUMULIN R100 UNIT/2 SQ; +LEVEMIR FL100 UNIT/1 SC; +LIDOCAINE HCL 2% LOCAL INJ 5 ML SDV VIAL INJ ONE; +LISINOPRIL-HCT1 EACH PO; +MIDAZOLAM HCL 2 MG/2 ML VIAL ONE; +MORPHINE SULFATE 2 MG/ML SYR 1ML ONE; +ONDANSETRON HCL INJ 2MG/ML 2ML 2 MG/ML VIAL ONE; +PHENYLEPHRINE HCL 1% 10 MG/ML VIAL ONE; +PROPOFOL IV EMULSION 10 MG/ML 20 ML VIAL ONE; +SEVOFLURANE INHAL SOLN 250 ML PEN BTL ONE
--- NOTE | 2019-09-12 10:59 | Operative Report ---
DATE OF PROCEDURE: 09/12/2019 SURGEON: Norm Perez MD ADULT PROTECTIVE CASEWORKER: Armaan Cota, certified PA. PREOPERATIVE DIAGNOSIS: Left knee medial meniscal tear. 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 PROCEDURES: Left knee arthroscopy, partial medial meniscectomy. INDICATIONS: The patient is a 58-year-old gentleman, who has clinic signs and symptoms consistent with a tear of the medial meniscus in his left knee. He has failed conservative management and would like to proceed with arthroscopic intervention. The risks and benefits of the procedure have been discussed. The specific attention has been applied to the fact that he has some underlying early arthritic changes. He understands that arthroscopy will not resolve all of the symptoms. He states he understands and wishes to proceed. PROCEDURE IN DETAIL: The patient was brought to the operating room and placed under general anesthetic. His left lower extremity was prepped and draped in a sterile manner. A preoperative time-out was performed. The extremity had been exsanguinated and a proximal tourniquet was inflated to 350 mmHg. Standard arthroscopy portals were established. The knee was insufflated with sterile saline and systematically inspected. There was fairly diffuse significant synovitis in the suprapatellar pouch. There were some signs of chondrocalcinosis in the patellofemoral groove. The articular cartilage was otherwise well preserved. There was extensive synovitis in the medial and lateral compartments. Some of this had to be resected to allow appropriate visualization. The medial compartment was inspected. There was an area of grade 3 chondromalacia of the medial femoral condyle. There were some unstable margins, that was probed and photographed, these were gently debrided back to a stable margin. There was a radial tear of the medial meniscus. This was debrided back to a stable margin using a combination of biting forceps and a mechanical shaver. There was degenerative chondrocalcinosis primarily involving the anterior cruciate ligament. Some of this was debrided, but we did not want to completely compromise the anterior cruciate ligament. The lateral compartment was inspected. There was some minor fraying of the free edge of the lateral meniscus, but otherwise on stable tear. The medial lateral gutters were inspected and were noted to be free of loose bodies. The knee was thoroughly irrigated with sterile saline to clear all debrided meniscal fragments. The arthroscopic instruments were removed. The portal incisions were closed with nylon stitches. A sterile bandage was applied. He was extubated and transported to the recovery room in stable condition. There was no blood loss and all needle and sponge counts were correct. Norm Perez MD DR/SHAHBAZ /[id number]
[2019-09-12 11:20] VITALS: BP 119/57
== END | disposition home or self-care (01) ==
LOC: OR 06:40
PROVIDERS: ATTEND Specialist
DX: S83.242A Other tear of medial meniscus, current injury, left knee, initial encounter (principal); S83.282A Other tear of lateral meniscus, current injury, left knee, initial encounter; M65.9 Synovitis and tenosynovitis, unspecified; M11.262 Other chondrocalcinosis, left knee; M94.262 Chondromalacia, left knee; M10.9 Gout, unspecified; G47.33 Obstructive sleep apnea (adult) (pediatric); J45.909 Unspecified asthma, uncomplicated; E11.22 Type 2 diabetes mellitus with diabetic chronic kidney disease; I12.9 Hypertensive chronic kidney disease with stage 1 through stage 4 chronic kidney disease, or unspecified chronic kidney disease; N18.9 Chronic kidney disease, unspecified; E66.01 Morbid (severe) obesity due to excess calories; W17.2XXA Fall into hole, initial encounter; Y93.89 Activity, other specified; Y92.89 Other specified places as the place of occurrence of the external cause; Y99.0 Civilian activity done for income or pay; Z01.810 Encounter for preprocedural cardiovascular examination; Z01.812 Encounter for preprocedural laboratory examination; Z11.59 Encounter for screening for other viral diseases; Z79.4 Long term (current) use of insulin; Z68.41 Body mass index [BMI] 40.0-44.9, adult; Z87.891 Personal history of nicotine dependence
CPT/HCPCS: 29881; 36415 ×2; 80048; 82948; 87635; 93005; J0131; J0690; J1100; J2001; J2250; J2270; J2370; J2405; J2704; J3010

== ENCOUNTER 2021-10-21 16:15 | Emergency (ER) | payer BC, OTHER ==
[~2021-10-21] VITALS: Ht 163.8 cm; Wt 109.3 kg
[~2021-10-21 16:15] MED LIST changes: -ACETAMINOPHEN 1000 MG/100 ML IV ONE; -CEFAZOLIN SOD 1 GM/NS 50ML 50 ML IV ONE; -DEXAMETHASONE SOD PHOS INJ 4 MG/ML VIAL ONE; -FENTANYL CITRATE/PF 100MCG/2 ML INJ ONE; -LIDOCAINE HCL 2% LOCAL INJ 5 ML SDV VIAL INJ ONE; -MIDAZOLAM HCL 2 MG/2 ML VIAL ONE; -MORPHINE SULFATE 2 MG/ML SYR 1ML ONE; -ONDANSETRON HCL INJ 2MG/ML 2ML 2 MG/ML VIAL ONE; -PHENYLEPHRINE HCL 1% 10 MG/ML VIAL ONE; -PROPOFOL IV EMULSION 10 MG/ML 20 ML VIAL ONE; -SEVOFLURANE INHAL SOLN 250 ML PEN BTL ONE
[2021-10-21] MEDS ORDERED: HYDROCODONE/APAP 5MG-325MG TAB PO ONE (17:30)
[2021-10-21] MEDS ORDERED: LIDOCAINE1 EAC1 EXT (19:15)
[2021-10-21] MEDS ORDERED: NAPROXEN250 MG PO (19:17)
== END 2021-10-21 19:00 | disposition home or self-care (01) ==
LOC: ER 17:06
DX: R07.81 Pleurodynia (principal); R06.02 Shortness of breath; W18.39XA Other fall on same level, initial encounter; Y93.01 Activity, walking, marching and hiking; Y92.89 Other specified places as the place of occurrence of the external cause
CPT/HCPCS: 71250; 99283